=== PATIENT | male | born 1935 | race Caucasian/White ===

== ENCOUNTER → 2017-03-27 | Outpatient (REF) | payer MEDICARE ==
[~2017-03-27] MED LIST: ALLO100T PO; AMLO25TA PO; AMLO5TAB2 PO; ASPI81TA85 PO; D 101TAB PO; FISH100049 PO; HYDR12.55 PO; LEVO100T5 PO; LIPI20TA PO; METF-414 PO; METF-699 PO; METF10004 PO; METF500T13 PO; OLME40TA PO; VITA-176 PO
[2017-03-27 18:50] LABS: BASO # 0.1 K/mm3 (0.0-0.2); BASO % 1.1 % (0.0-1.0); EOS # 0.1 K/mm3 (0.0-0.50); EOS % 1.3 % (0.0-3.0); LARGE UNSTAINED CELL # 0.2 K/mm3 (0.0-0.4); LYMPH # 0.8 K/mm3 (1.5-4.5); LYMPH % 15.4 % (24.0-44.0); MEAN CORPUSCULAR HEMOGLOBIN 32.7 pg (27.0-33.0); MEAN CORPUSCULAR HGB CONC 34.3 g/dl (32.0-36.5); MEAN CORPUSCULAR VOLUME 95.4 fl (80.0-96.0); MONO # 0.3 K/mm3 (0.0-0.8); MONO % 6.6 % (0.0-5.0); NEUTROPHILS # 3.6 K/mm3 (1.8-7.7); NEUTROPHILS % 72.5 % (36.0-66.0); PLATELET COUNT, AUTOMATED 157 k/mm3 (150-450); RED CELL DISTRIBUTION WIDTH 12.6 % (11.5-14.5)
[2017-03-30 10:13] LABS: CONTROL LINE MONO INT CTR LINE PRESENT
[2017-03-31 00:11] LABS: Lyme Disease IgG/IgM Antibodie <0.91 ISR (0.00-0.90); Lyme Disease IgM Ab Quantitati <0.80 index (0.00-0.79)
== END ==
LOC: M LABDRAW1 17:08
PROVIDERS: ATTEND Physician Assistant
DX: R53.83 Other fatigue (principal)

== ENCOUNTER 2017-04-02 16:12 | Inpatient (IN) | payer MEDICARE ==
[~2017-04-02] VITALS: Ht 180.3 cm; Wt 95.1 kg
[2017-04-02] MEDS ORDERED: METF10004 PO (16:50)
[2017-04-02] MEDS ORDERED: ALLO100T PO (16:50)
[2017-04-02] MEDS ORDERED: AMLO25TA PO (16:50)
[2017-04-02] MEDS ORDERED: LIPI20TA PO (16:50)
[2017-04-02] MEDS ORDERED: ASPI81TA85 PO (16:50)
[2017-04-02] MEDS ORDERED: HYDR12.55 PO (16:50)
[2017-04-02] MEDS ORDERED: VITA-176 PO (16:50)
[2017-04-02] MEDS ORDERED: OLME40TA PO (16:50)
[2017-04-02] MEDS ORDERED: METF500T13 PO (16:50)
[2017-04-02] MEDS ORDERED: LEVO100T5 PO (16:50)
[2017-04-02] MEDS ORDERED: FISH100049 PO (16:50)
[2017-04-02] MEDS ORDERED: NS 1,000 ML IV ONE (17:30)
[2017-04-02 17:38] LABS: BASO # 0.1 K/mm3 (0.0-0.2); BASO % 0.8 % (0.0-1.0); EOS # 0.1 K/mm3 (0.0-0.50); EOS % 0.7 % (0.0-3.0); LARGE UNSTAINED CELL # 0.2 K/mm3 (0.0-0.4); LARGE UNSTAINED CELL % 1.4 % (0.0-4.0); LYMPH % 8.6 % (24.0-44.0); MEAN CORPUSCULAR HEMOGLOBIN 32.4 pg (27.0-33.0); MEAN CORPUSCULAR HGB CONC 34.6 g/dl (32.0-36.5); MEAN CORPUSCULAR VOLUME 93.8 fl (80.0-96.0); MONO # 0.6 K/mm3 (0.0-0.8); MONO % 5.5 % (0.0-5.0); NEUTROPHILS # 9.7 K/mm3 (1.8-7.7); NEUTROPHILS % 83.1 % (36.0-66.0); PLATELET COUNT, AUTOMATED 263 k/mm3 (150-450); RED CELL DISTRIBUTION WIDTH 12.2 % (11.5-14.5); WHITE BLOOD COUNT 11.7 K/mm3 (4.0-10.0)
--- NOTE | 2017-04-02 17:50 | REP ---
Chest two views HISTORY: Cough Comparison: 03/27/2017 Linear density is present in the left lower lobe consistent with atelectasis or infiltrate. The right lung is clear. The heart is normal in size. The pulmonary vasculature is normal in appearance. The bony structure is intact. IMPRESSION: Left lower lobe atelectasis or infiltrate. Signed by Mathew Muniz MD 04/02/2017 05:41 P
[2017-04-02] MEDS ORDERED: cefTRIAXone SOD 2 GM in D5W MINI-BAG PLUS 50 ML IV ONE (18:00)
[2017-04-02] MEDS ORDERED: AZITHROMYCIN 250 MG TAB PO ONE (18:00)
[2017-04-02 18:25] LABS: ALBUMIN/GLOBULIN RATIO 0.81 (1.00-1.93); BILIRUBIN,DIRECT 0.3 MG/DL (0.0-0.2); BILIRUBIN,TOTAL 0.8 MG/DL (0.2-1.0); CALCIUM LEVEL 8.6 MG/DL (8.8-10.2); CREATININE FOR GFR 1.98 MG/DL (0.70-1.30); GLOMERULAR FILTRATION RATE 34.6 (>35); POTASSIUM SERUM 4.4 MEQ/L (3.5-5.1); TOTAL PROTEIN 6.7 GM/DL (6.4-8.2)
[2017-04-02] MEDS ORDERED: METF-699 PO (19:59)
[2017-04-02] MEDS ORDERED: METF-414 PO (19:59)
[2017-04-02] MEDS ORDERED: D 101TAB PO (19:59)
[2017-04-02] MEDS ORDERED: ACETAMINOPHEN TAB 650MG DOSE (2X325MG) PO PRN (21:30)
[2017-04-02] MEDS ORDERED: GLUCOSE 4 GM CHEW TABLET PO PRN (21:30)
[2017-04-02] MEDS ORDERED: GLUCAGON FOR INJ 1 MG VIAL (J1610) SC PRN (21:30)
[2017-04-02] MEDS ORDERED: ONDANSETRON 4MG/2ML VIAL (J2405) IV PRN (21:30)
[2017-04-02] MEDS ORDERED: NS 1,000 ML IV SCH (21:30)
[2017-04-02] MEDS ORDERED: DEXTROSE 50% 50 ML SYRINGE IV PRN (21:30)
[2017-04-02] MEDS: HumaLOG INSULIN (NovoLOG) PER UNIT SC SCH (23:26)
[2017-04-02] MEDS: guaiFENesin ER 600 MG TAB PO SCH (23:40)
[2017-04-02] MEDS: ATORVASTATIN 20 MG TAB PO SCH (23:40)
[2017-04-02] MEDS: ALLOPURINOL 100 MG TAB PO SCH (23:40)
[2017-04-02 23:42] VITALS: BP 120/68
[2017-04-03] VITALS (12 sets, daily range): BP systolic 121–138; BP diastolic 60–79; O2SAT 91–97
[2017-04-03] MEDS ORDERED: METAL LOCK LOOP XX ONE (05:07)
[2017-04-03] MEDS: LEVOTHYROXINE 100MCG TABLET (0.1MG) PO SCH (05:34)
--- NOTE | 2017-04-03 05:46 | HPE ---
DATE OF ADMISSION: 04/02/2017 PRIMARY CARE PROVIDER: Dr. Ralf Lewis, phone number [phone], [place]. CHIEF COMPLAINT: Diffuse myalgia, subjective chills, generalized weakness. HISTORY OF PRESENT ILLNESS: This is an 81-year-old male patient with underlying medical history of diabetes, hypertension, dyslipidemia, gout, hypothyroidism, was here in [place] in the summer for a visit , presented with 1 week of progressively worsening diffuse myalgia, generalized weakness, subjective fevers and fatigue. Initially reported some neck stiffness that later had resolved. Symptom has persisted for 9 days. Also with mild nonproductive cough, nasal congestion. With loose bowel movement. No camping or exposure to. Patient has not been camping or in the [place], but does report concerns of the deer population but did not notice any rash or lesions. Denies any sick contact. Baseline ambulating with a cane. History of sleep apnea. Uses continuous positive airway pressure (CPAP) at night. Patient denies any chest pain, pressure or discomfort. Denies history of coronary artery disease or cerebrovascular disease. Denies any headache, vision change, hearing change. Was tachycardia on admission to the emergency room. Also has history of chronic kidney disease (CKD). Baseline creatinine as per emergency room provider is around 1.3. ALLERGIES to XARELTO (liver failure). PAST MEDICAL HISTORY: 1. Diabetes, type 2, [id number]. 2. Hypertension. 3. Dyslipidemia. 4. Gout. 5. Hypothyroidism. PAST SURGICAL HISTORY: Bilateral knee surgery. SOCIAL HISTORY: Patient lives in [place], here in [place] for the summer. Denies smoking. Drinking two cocktails per night. No history of alcohol addiction or withdrawal. REVIEW OF SYSTEMS: Reported fatigue, arthralgia, myalgia, subjective chills, cough and nasal congestion and cough. All other review of systems are negative. HOME MEDICATION: - allopurinol 100 mg by mouth twice a day - Norvasc 2.5 mg by mouth nightly - aspirin 81 mg by mouth daily - Lipitor 40 mg by mouth nightly - vitamin D 1000 units by mouth twice a day - fish oil one capsule by mouth daily - hydrochlorothiazide 12.5 mg by mouth every 2 days - Synthroid 100 mcg by mouth daily - metformin 500 mg by every morning and 1000 mg by mouth every evening - olmesartan 40 mg by mouth every evening PHYSICAL EXAMINATION: Vital Signs: Temperature 97, pulse 109, respirations 18, blood pressure 103/55, pulse oximetry 97% on room air. General: Patient alert, oriented times three, in no acute distress. HEENT: Normocephalic, atraumatic. Pulmonary: Bilateral clear to auscultation. Diminished breath sounds left lower base. Cardiac: Regular rate and rhythm. No tachycardia. S1, S2. Abdomen: Soft. Nontender. Positive bowel sounds. Extremities: No edema bilateral lower extremities. Neurologic: No focal deficit. No nuchal rigidity. Chest x-ray shows left lower lobe infiltrate versus atelectasis. LABORATORY: WBC 11.7, hemoglobin and hematocrit 13.4/38.9, platelets 263. Chemistry: Sodium 135, potassium 4.4, chloride 104, bicarbonate 22, BUN 50, creatinine 1.98, C-reactive protein 13.5. ASSESSMENT AND PLAN: This is an 81-year-old male patient with underlying medical history of diabetes, hypertension, dyslipidemia, gout, hypothyroidism, obstructive sleep apnea, admitted for pneumonia. PROBLEMS: 1. Community-acquired bacterial pneumonia. Patient with myalgia, arthralgia and subjective fever. Followup Lyme screening. Rocephin and Zithromax for now. Intravenous (IV) fluids for hydration. Followup C-reactive protein, respiratory panel. Mucinex, Acapella. X-rays appreciated. 2. Arthralgia and myalgia. Continue antibiotics as mentioned above. Lyme screening. 3. Acute on chronic renal insufficiency. Urine studies ordered. Ultrasound kidney. IV fluids for hydration. Followup BUN and creatinine. Withholding hydrochlorothiazide and angiotensin receptor blockers (ARBs). 4. Diabetes. Withholding metformin given elevated creatinine and patient has been admitted. Insulin is per protocol. Followup fingersticks. 5. Hypertension. Withholding hydrochlorothiazide and ARBs given active infection. Continue Norvasc, increase as needed. Followup blood pressure. 6. Dyslipidemia. Continue statin. 7. Gout. Continue current medication. 8. Hypothyroidism. Followup thyroid function test. Continue Synthroid. 9. Obstructive sleep apnea. Obstructive sleep apnea (LANG) protocol. CPAP as ordered. 10. Deep venous thrombosis (DVT) prophylaxis. Heparin subcu. DISPOSITION PLANNING: Pending clinical improvement, further workup. [facility]
[2017-04-03 06:52] LABS: MEAN CORPUSCULAR HEMOGLOBIN 32.8 pg (27.0-33.0); MEAN CORPUSCULAR HGB CONC 35.1 g/dl (32.0-36.5); MEAN CORPUSCULAR VOLUME 93.5 fl (80.0-96.0); RED CELL DISTRIBUTION WIDTH 12.5 % (11.5-14.5); WHITE BLOOD COUNT 8.6 K/mm3 (4.0-10.0)
[2017-04-03 07:17] LABS: ALBUMIN 2.3 GM/DL (3.2-5.2); ALBUMIN/GLOBULIN RATIO 0.55 (1.00-1.93); BILIRUBIN,TOTAL 0.8 MG/DL (0.2-1.0); CALCIUM LEVEL 8.2 MG/DL (8.8-10.2); CREATININE FOR GFR 1.49 MG/DL (0.70-1.30); GLOMERULAR FILTRATION RATE 48.1 (>35); THYROXINE (T4) 10.3 UG/DL (4.5-12.0); TOTAL PROTEIN 6.5 GM/DL (6.4-8.2)
--- NOTE | 2017-04-03 07:38 | ECGEPIP ---
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
[2017-04-03] MEDS: HEPARIN SOD (PORCINE) 5000 UNITS/ML VIAL SC SCH ×2 (08:28→20:27)
[2017-04-03] MEDS: OMEGA-3 1050MG CAPSULE PO SCH (08:28)
[2017-04-03] MEDS: VITAMIN D 1,000 INTERNATIONAL UNITS TABLET PO SCH ×2 (08:28→20:28)
[2017-04-03] MEDS: ALLOPURINOL 100 MG TAB PO SCH ×2 (08:28→20:28)
[2017-04-03] MEDS: SENOKOT S TAB PO SCH ×2 (08:28→20:28)
[2017-04-03] MEDS: ASPIRIN 81 MG ENTERIC TAB PO SCH (08:28)
[2017-04-03] MEDS: HumaLOG INSULIN (NovoLOG) PER UNIT SC SCH ×4 (08:28→20:18)
[2017-04-03] MEDS: guaiFENesin ER 600 MG TAB PO SCH ×2 (08:28→20:28)
--- NOTE | 2017-04-03 11:11 | REP ---
RENAL AND BLADDER ULTRASOUND: Real-time sonographic evaluation of the kidneys performed. Kidneys are normal in size, right kidney measuring 11.0 x 5.2 x 5.8 cm and left kidney 10.7 x 5.5 x 5.5 cm. Echotexture is slightly increased. There is no hydronephrosis. A cyst or focal caliectasis is seen in the lower pole of the left kidney 1.3 x 1.2 x 0.9 cm. No definite renal stones are seen. Urinary bladder demonstrates no mass or calculus measuring 12.4 x 9.5 x 6.3 cm. IMPRESSION: No hydronephrosis. Small left renal cyst. Signed by Fadi Quiles MD 04/03/2017 12:21 P
[2017-04-03] MEDS: AZITHROMYCIN INJ 500 MG, VIAL MATE ADAPTER 1 EACH in D5W 250 ML IV SCH (17:38)
[2017-04-03] MEDS: cefTRIAXone SOD 1 GM in D5W MINI-BAG PLUS 50 ML IV SCH (17:38)
--- NOTE | 2017-04-03 18:38 | IPN ---
DATE: 04/03/2017 SUBJECTIVE: Patient seen and examined in the room today. Patient stated he is taking vacation in [place]. His primary residence is in [place]. He has been in the [facility] for the past almost one month. He cannot recall any type of sick contact. Patient has been experiencing generalized arthralgia with fatigue. Before coming to the hospital, patient stated he has been sleeping more than 12 hours a day, which is not usual for him. However, he does feel his symptoms were improving the last week, but he cannot perform daily activity functions as he desired. That is why he came to [facility] to seek further assistance and treatments. Patient cannot recollect whether he has been having any type of insect bite. Denies any traumas. OBJECTIVE: VITAL SIGNS: Temperature 99.6, pulse 88, respirations 20, blood pressure 123/63, pulse oximetry 94% on room air. GENERAL: Fatigue. No signs of acute distress. Alert and oriented times three. HEENT: Normocephalic, atraumatic. Extraocular motor grossly intact. CARDIOVASCULAR: Positive S2, S2. Regular rate. LUNGS: Clear to auscultation bilaterally. Diminished breath sounds. ABDOMEN: Soft, nontender, nondistended. Bowel sounds present. EXTREMITIES: No edema. No cyanosis. LABORATORY DATA: WBC 8.6, hemoglobin 11.1, hematocrit 31.6, platelet count 245. Sodium 141, potassium 4, chloride 110, carbon dioxide 24, BUN 39, creatinine 1.49, GFR 48.1, fasting glucose 157, A1c 6.4, calcium 8.2, magnesium 2. Total bilirubin 0.8, AST 61, ALT 67 alkaline phosphatase 104, C-reactive protein 13.1, total protein 6.5. Thyroid stimulating hormone (TSH) 1.16, T4 level 10.3. ASSESSMENT AND PLAN: 1. Acute kidney injury. Patient currently experiencing generalized symptoms of subjective fevers, fatigue, generalized myalgias and arthralgias. Patient has decreased oral intake causing acute kidney injury. At the time of admission, the patient had a creatinine of 1.98. The patient has been receiving fluid resuscitation. Currently, creatinine has improved to 1.49. Continue current management. 2. Community-acquired pneumonia. Patient's imaging study cannot rule out pneumonia completely. Empirically, patient has been started on Rocephin and azithromycin. Will continue to follow the patient. 3. Generalized myalgias and arthralgias. Presented with a low-grade fever. Patient may be experiencing some viral infection recently. We will follow with disease screening. 4. Hypertension. Due to the acute kidney injury, patient's blood pressure medications are on hold. Even without his blood pressure medications, patient's blood pressure has been maintained in the satisfactory range. 5. Dyslipidemia. On Lipitor. 6. Gout. On allopurinol. 7. Non-insulin dependent diabetes. Patient is currently on sliding scale. 8. Obstructive sleep apnea (LANG). On LANG protocol. Patient may use his continuous positive airway pressure (C-PAP). 9. Deep venous thrombosis (DVT) prophylaxis. On heparin.
[2017-04-03] MEDS: ATORVASTATIN 20 MG TAB PO SCH (20:27)
[2017-04-04] VITALS (25 sets, daily range): BP systolic 122–155; BP diastolic 72–93; O2SAT 91–98
[2017-04-04] MEDS: LEVOTHYROXINE 100MCG TABLET (0.1MG) PO SCH (05:31)
[2017-04-04 06:37] LABS: MEAN CORPUSCULAR HEMOGLOBIN 31.8 pg (27.0-33.0); MEAN CORPUSCULAR HGB CONC 33.5 g/dl (32.0-36.5); MEAN CORPUSCULAR VOLUME 95.1 fl (80.0-96.0); RED CELL DISTRIBUTION WIDTH 12.1 % (11.5-14.5); WHITE BLOOD COUNT 11.2 K/mm3 (4.0-10.0)
[2017-04-04 06:50] LABS: ALBUMIN 2.5 GM/DL (3.2-5.2); ALBUMIN/GLOBULIN RATIO 0.56 (1.00-1.93); ALKALINE PHOSPHATASE 136 U/L (45-117); ALT/SGPT 134 U/L (12-78); ANION GAP 7 MEQ/L (8-16); AST/SGOT 127 U/L (15-37); BILIRUBIN,TOTAL 0.8 MG/DL (0.2-1.0); BLOOD UREA NITROGEN 23 MG/DL (7-18); CALCIUM LEVEL 9.1 MG/DL (8.8-10.2); CARBON DIOXIDE LEVEL 25 MEQ/L (21-32); CHLORIDE LEVEL 103 MEQ/L (98-107); CREATININE FOR GFR 1.16 MG/DL (0.70-1.30); GLOMERULAR FILTRATION RATE > 60.0 (>35); GLUCOSE, FASTING 144 MG/DL (83-110); MAGNESIUM LEVEL 1.8 MG/DL (1.8-2.4); POTASSIUM SERUM 4.2 MEQ/L (3.5-5.1); SODIUM LEVEL 135 MEQ/L (136-145)
[2017-04-04] MEDS: HumaLOG INSULIN (NovoLOG) PER UNIT SC SCH ×4 (08:24→21:00)
[2017-04-04] MEDS: ALLOPURINOL 100 MG TAB PO SCH ×2 (11:56→20:41)
[2017-04-04] MEDS: HEPARIN SOD (PORCINE) 5000 UNITS/ML VIAL SC SCH ×2 (11:56→20:42)
[2017-04-04] MEDS: ASPIRIN 81 MG ENTERIC TAB PO SCH (11:56)
[2017-04-04] MEDS: SENOKOT S TAB PO SCH ×2 (11:57→20:42)
[2017-04-04] MEDS: OMEGA-3 1050MG CAPSULE PO SCH (11:57)
[2017-04-04] MEDS: guaiFENesin ER 600 MG TAB PO SCH ×2 (11:57→20:42)
[2017-04-04] MEDS: VITAMIN D 1,000 INTERNATIONAL UNITS TABLET PO SCH ×2 (11:57→20:41)
--- NOTE | 2017-04-04 14:04 | REP ---
RIGHT UPPER QUADRANT ULTRASOUND: Real-time sonographic evaluation of the right upper quadrant performed. There are small gallstones in the gallbladder. There is no gallbladder wall thickening or pericholecystic fluid. There is no intrahepatic biliary dilatation. The common bile duct is not dilated measuring 6 mm in diameter. The liver demonstrates diffuse heterogeneous increased echotexture suggesting diffuse fibrofatty infiltration. A cyst is seen in the liver inferiorly 1.1 x 1.0 x 1.3 cm. The pancreas is grossly unremarkable but not well seen due to overlying bowel gas. Right kidney demonstrates no hydronephrosis with normal size at 12.2 cm in length. A cyst in the mid right kidney measures 1.5 x 1.1 x 1.3 cm. Another cyst in the upper pole measures 1.6 x 1.0 x 1.5 cm. IMPRESSION: Small gallstones in the gallbladder. No free fluid. No biliary dilatation. Diffuse fibrofatty infiltration of the liver. Small cyst inferiorly in the liver. Two right renal cysts. Signed by Fadi Quiles MD 04/04/2017 03:21 P
[2017-04-04 15:12] LABS: Lyme Disease IgG/IgM Antibodie <0.91 ISR (0.00-0.90); Lyme Disease IgM Ab Quantitati <0.80 index (0.00-0.79)
[2017-04-04] MEDS: cefTRIAXone SOD 1 GM in D5W MINI-BAG PLUS 50 ML IV SCH (17:15)
[2017-04-04] MEDS: AZITHROMYCIN INJ 500 MG, VIAL MATE ADAPTER 1 EACH in D5W 250 ML IV SCH (17:15)
--- NOTE | 2017-04-04 20:09 | IPN ---
DATE: 04/04/2017 SUBJECTIVE: The patient is seen and examined in the room today. The patient stated he does not have any fever or chill. His generalized discomfort has been improving. His joint pain and muscle pain are also improving. The patient tolerated good oral intake. His fatigue is also improving. OBJECTIVE: VITAL SIGNS: Temperature is 98.5, pulse 86, respiratory rate 20, blood pressure 155/93, pulse oximetry 94% on room air. GENERAL: No sign of acute distress. Alert and oriented times three. HEENT: Normocephalic, atraumatic. Extraocular motor grossly intact. CARDIOVASCULAR: Positive S1, S2. Regular rate. LUNGS: Clear to auscultation bilaterally. Diminished breath sounds. ABDOMEN: Soft, nontender, nondistended. EXTREMITIES: No edema, no sign of cyanosis. LABORATORY DATA: WBC 11.2, hematocrit 11.5, hematocrit 34.4, platelet count 312. Sodium 135, potassium 4.2, chloride 103, carbon dioxide 25, BUN 23, creatinine 1.16, GFR greater than 60, fasting glucose is 144, calcium 9.1, magnesium 1.8. Total bilirubin 0.8, AST 127, ALT 134, alkaline phosphatase 136. C-reactive protein 13.5. Total protein 7, albumin 2.5. ASSESSMENT AND PLAN: 1. Acute kidney injury most likely secondary to previous generalized weakness and discomfort. The patient was dehydrated. Since admission, the patient is being supplemented with intravenous (IV) fluid. Today, the patient's renal function returned to normal range. The patient has very good oral intake at this moment. I will continue to follow with the renal function tomorrow. 2. Hypothyroidism. On Synthroid. 3. Arthralgia with myalgia. The patient did present with a very low-grade temperature in the past. No significant white count is noted. The patient may have experienced some viral infection. Clinically the patient is improving. 4. Transaminitis. There is acute increase of transaminitis in the last 24-48 hours. Follow with liver ultrasound. Follow with hepatitis panel. Other possibility is that the transaminitis is due to the new medication usage. 5. Gout. On allopurinol. 6. [id number]-ssgcgiymw diabetes. The patient is currently on sliding scale. 7. Obstructive sleep apnea (LANG) on continuous positive airway pressure (CPAP). 8. Hypertension due to acute kidney injury (CIARAN). The patient's blood pressure was adjusted. Hydrochlorothiazide was on hold. The patient is getting Norvasc at 2.5 mg by mouth at bedtime. 9. Deep venous thrombosis (DVT) prophylaxis. On heparin.
[2017-04-04] MEDS: ATORVASTATIN 20 MG TAB PO SCH (20:41)
[2017-04-04] MEDS: amLODIPine 5 MG TAB PO SCH (20:42)
[2017-04-05] VITALS (13 sets, daily range): BP systolic 102–134; BP diastolic 53–81; O2SAT 91–97
[2017-04-05] MEDS ORDERED: METOCLOPRAMIDE INJ 10MG/2ML VIAL (J2765) IV ONE (04:45)
[2017-04-05] MEDS ORDERED: MOM 30ML SUSPENSION UDC PO ONE (04:45)
[2017-04-05 06:08] LABS: MEAN CORPUSCULAR HEMOGLOBIN 32.3 pg (27.0-33.0); MEAN CORPUSCULAR HGB CONC 34.7 g/dl (32.0-36.5); MEAN CORPUSCULAR VOLUME 93.2 fl (80.0-96.0); RED CELL DISTRIBUTION WIDTH 12.4 % (11.5-14.5); WHITE BLOOD COUNT 11.7 K/mm3 (4.0-10.0)
[2017-04-05 06:32] LABS: ALBUMIN 2.4 GM/DL (3.2-5.2); ALBUMIN/GLOBULIN RATIO 0.49 (1.00-1.93); ALKALINE PHOSPHATASE 170 U/L (45-117); ALT/SGPT 173 U/L (12-78); ANION GAP 11 MEQ/L (8-16); AST/SGOT 163 U/L (15-37); BILIRUBIN,TOTAL 0.9 MG/DL (0.2-1.0); BLOOD UREA NITROGEN 24 MG/DL (7-18); CARBON DIOXIDE LEVEL 26 MEQ/L (21-32); CHLORIDE LEVEL 99 MEQ/L (98-107); CREATININE FOR GFR 1.21 MG/DL (0.70-1.30); GLOMERULAR FILTRATION RATE > 60.0 (>35); GLUCOSE, FASTING 157 MG/DL (83-110); POTASSIUM SERUM 3.9 MEQ/L (3.5-5.1); SODIUM LEVEL 136 MEQ/L (136-145); TOTAL PROTEIN 7.3 GM/DL (6.4-8.2)
[2017-04-05] MEDS: LEVOTHYROXINE 100MCG TABLET (0.1MG) PO SCH (07:58)
[2017-04-05] MEDS: SENOKOT S TAB PO SCH ×2 (07:58→21:39)
[2017-04-05] MEDS: HumaLOG INSULIN (NovoLOG) PER UNIT SC SCH ×4 (09:00→21:41)
[2017-04-05] MEDS: HEPARIN SOD (PORCINE) 5000 UNITS/ML VIAL SC SCH ×2 (10:00→21:39)
[2017-04-05] MEDS: ALLOPURINOL 100 MG TAB PO SCH ×2 (10:01→21:39)
[2017-04-05] MEDS: ASPIRIN 81 MG ENTERIC TAB PO SCH (10:01)
[2017-04-05] MEDS: OMEGA-3 1050MG CAPSULE PO SCH (10:01)
[2017-04-05] MEDS: VITAMIN D 1,000 INTERNATIONAL UNITS TABLET PO SCH ×2 (10:01→21:40)
[2017-04-05] MEDS: guaiFENesin ER 600 MG TAB PO SCH ×2 (10:01→21:40)
--- NOTE | 2017-04-05 12:15 | REP ---
CT CHEST WITHOUT IV CONTRAST: CT chest is performed without IV contrast. Scattered linear fibroatelectatic changes are seen in the lower lobes bilaterally. No consolidating infiltrate is seen. The heart does not appear to be significantly enlarged. There is no pleural or pericardial effusion. No significant adenopathy is seen in the mediastinal or hilar regions. There are mild scattered atherosclerotic calcifications of the thoracic aorta without evidence of aneurysm. There are degenerative changes of the spine. Visualized upper abdominal structures appear grossly unremarkable. IMPRESSION: Scattered fibroatelectatic changes in the lower lobes. No consolidating infiltrate. Signed by Fadi Quiles MD 04/05/2017 07:28 P
[2017-04-05] MEDS: NS 1,000 ML IV SCH (18:23)
--- NOTE | 2017-04-05 20:39 | IPN ---
DATE OF SERVICE: 04/05/2017 SUBJECTIVE: Patient is seen and examined in the room today. Yesterday near midnight, patient started having acute nausea, vomiting and he had vomited three times since. Due to frequent nausea, vomiting, he is not able to tolerate his noninvasive positive pressure ventilation (NIPPV) and he has been placed on the nasal cannula. This morning during encounter, patient stated he does feel extremely tired due to the persistent nausea and vomiting overnight. His joint pain and muscle pain has improved. OBJECTIVE: VITAL SIGNS: Temperature 97.1, pulse 83, respiratory rate 20, blood pressure 134/81, pulse oximetry 95% in room air. GENERAL: Fatigued, no sign of acute distress. Alert and oriented times three. HEENT: Normocephalic, atraumatic. Extraocular motor grossly intact. CARDIOVASCULAR: Positive S1, S2. Regular rate. LUNGS: Clear to auscultation bilaterally. Decreased breath sounds. ABDOMEN: Soft, nontender, nondistended. EXTREMITIES: No edema, no sign of cyanosis. LABORATORY DATA: WBC 11.7, hemoglobin 11.3, hematocrit 32.4, platelet count 338. Sodium 136, potassium 3.9, chloride 99, carbon dioxide 26, BUN 24, creatinine 1.21, GFR greater than 60, fasting glucose is 157, calcium 9, magnesium 2. Total bilirubin 0.9, AST 163, ALT 173, alkaline phosphatase 170. C-reactive protein is 16.9. Total protein 7.3, albumin 2.4. ASSESSMENT AND PLAN: 1. Adenovirus. It is approximately 1-1/2 to 2 weeks since the beginning of the patient's disease process. Patient is still having intermittent gastrointestinal (GI) symptoms. Will continue with supportive care. In the last 24 hours, patient still has nausea, vomiting causing poor oral intake. Patient is started on intravenous (IV) support. I also had a chance to talk to patient's and patient's son. All their questions are answered. 2. Gout. On allopurinol. 3. Acute kidney injury secondary to dehydration from poor oral intake. Patient with IV fluid, acute kidney injury resolved. 4. Arthralgia and myalgia. Most likely secondary to enterovirus. Lyme disease negative. 5. Transaminitis. Possibly due to the GI involvement from current enterovirus infection. The patient has a negative liver ultrasound. Will follow with a hepatitis panel. 6. Sip-xebjpto-dmxmnibko diabetes. Patient will be on sliding scale. 7. Obstructive sleep apnea (LANG). On continuous positive airway pressure (CPAP). 8. Hypertension. Patient is on Norvasc. Due to acute kidney injury (CIARAN), hydrochlorothiazide has been on hold. Lisinopril was on hold due to CIARAN. It seems the patient can achieve better blood pressure control at home. The patient may not need lisinopril any more. 9. Hypothyroidism. On Synthroid. 10. Deep venous thrombosis (DVT) prophylaxis. Patient on heparin. MTDD
[2017-04-05] MEDS: amLODIPine 5 MG TAB PO SCH (21:39)
[2017-04-06] MEDS: NS 1,000 ML IV SCH (05:15)
[2017-04-06 06:00] VITALS: BP 127/67
[2017-04-06] MEDS: LEVOTHYROXINE 100MCG TABLET (0.1MG) PO SCH (06:23)
[2017-04-06 06:44] LABS: MEAN CORPUSCULAR HEMOGLOBIN 32.2 pg (27.0-33.0); MEAN CORPUSCULAR VOLUME 94.6 fl (80.0-96.0); RED CELL DISTRIBUTION WIDTH 12.4 % (11.5-14.5); WHITE BLOOD COUNT 10.4 K/mm3 (4.0-10.0)
[2017-04-06 07:02] LABS: ALBUMIN/GLOBULIN RATIO 0.43 (1.00-1.93); BILIRUBIN,TOTAL 0.5 MG/DL (0.2-1.0); CALCIUM LEVEL 8.6 MG/DL (8.8-10.2); CREATININE FOR GFR 1.24 MG/DL (0.70-1.30); GLOMERULAR FILTRATION RATE 59.4 (>35); POTASSIUM SERUM 4.4 MEQ/L (3.5-5.1); TOTAL PROTEIN 6.6 GM/DL (6.4-8.2)
[2017-04-06] MEDS: guaiFENesin ER 600 MG TAB PO SCH (09:34)
[2017-04-06] MEDS: HEPARIN SOD (PORCINE) 5000 UNITS/ML VIAL SC SCH (09:34)
[2017-04-06] MEDS: OMEGA-3 1050MG CAPSULE PO SCH (09:34)
[2017-04-06] MEDS: HumaLOG INSULIN (NovoLOG) PER UNIT SC SCH ×2 (09:34→12:00)
[2017-04-06] MEDS: SENOKOT S TAB PO SCH (09:35)
[2017-04-06] MEDS: VITAMIN D 1,000 INTERNATIONAL UNITS TABLET PO SCH (09:35)
[2017-04-06] MEDS: ALLOPURINOL 100 MG TAB PO SCH (09:35)
[2017-04-06] MEDS: ASPIRIN 81 MG ENTERIC TAB PO SCH (09:35)
[2017-04-06] MEDS ORDERED: AMLO5TAB2 PO (10:42)
[2017-04-06 14:00] VITALS: BP 114/59
--- NOTE | 2017-04-09 18:36 | DSES ---
DATE OF ADMISSION: 04/02/2017 DATE OF DISCHARGE: 04/06/2017 PRIMARY CARE PROVIDER: Dr. Ralf Lewis in [place] and Debbi Donahue MD in [place], [place] CONSULTANTS: None. COMPLICATIONS: None. ADMISSION/DISCHARGE DIAGNOSES: 1. Enterovirus infection. 2. Gout. 3. Acute kidney injury secondary to dehydration. 4. Arthritis and myalgia. 5. Transaminitis from acute viral infection. 6. Non-insulin dependent diabetes. 7. Obstructive sleep apnea (LANG) on continuous positive airway pressure (CPAP). 8. Hypertension. 9. Hypothyroidism. HOSPITALIZATION COURSE: Patient is an 81-year-old male who presented to [facility] on 04/02/2017, with generalized weakness and diffuse myalgia/arthralgia. Patient is admitted to progressive care unit (PCU) for telemetry and diagnostic tests were ordered to establish a diagnosis. Initially, due to concern for community-acquired pneumonia, patient is started on empiric antibiotics. With medical management, patient showed subjective improvement initially. However, on 04/04/2017, patient started to have recurrent severe vomiting. Symptoms resolved with medical management. Later, the diagnostic studies came back positive for Enterovirus. With medical management, patient showed continued improvement and on 04/06/2017, patient was evaluated by physical therapy and determined to be stable for discharge. OBJECTIVE: VITAL SIGNS: Temperature is 97.5, pulse is 82, respirations 20, blood pressure is 114/59, pulse oximetry is 94% in room air. LABORATORY DATA: WBC 10.4, hemoglobin 10.7, hematocrit 31.5, platelet count is 338. Sodium 142, potassium 4.4, chloride 105, carbon dioxide 30, BUN 26, creatinine is 1.24, GFR is 59.4, fasting glucose is 128, calcium 8.6, magnesium 2, total bilirubin 0.5, AST 100, ALT 136, alkaline phosphatase is 149, C-reactive protein 13, total protein 6.6, albumin 2. IMAGING STUDIES: Chest x-ray on 04/02/2017, showed left lower lobe atelectasis or infiltrate. Renal ultrasound on 04/03/2017, showed hydronephrosis. Liver ultrasound on 04/04/2017, showed small gallstone in the gallbladder. No free fluid. No biliary dilatation. Diffuse fibrofatty infiltrate of the liver. Small cyst inferiorly the liver. Two right renal cysts. CT of the chest without contrast on 04/05/2017, showed scattered fibroatelectatic changes in the lower lobe. No consolidating infiltrates. Microbiology: Blood cultures negative after 5 days times two sets, sample collected on 04/02/2017. Respiratory panel is negative. Gastrointestinal (GI) panel shows positive for Enterovirus. DISCHARGE MEDICATIONS: - amlodipine 5 mg by mouth nightly - allopurinol 100 mg by mouth twice a day - aspirin 81 mg by mouth daily - atorvastatin 40 mg by mouth nightly - vitamin D 1000 units by mouth twice a day - Synthroid 100 mcg by mouth daily - metformin 500 mg by mouth every morning and metformin 1000 mg by mouth every evening - olmesartan 40 mg by mouth every evening DISCHARGE INSTRUCTIONS: Discontinue lines. Discharge home. Activity as tolerated. Patient should ambulate with a walker which was provided to the patient before patient fully regains his strength. Patient should followup with primary care provider in 1-2 weeks. DISCHARGE CONDITION: Stable. DISCHARGE TIME: Greater than 30 minutes.
== END 2017-04-06 16:40 | disposition home or self-care (01) | DRG 392 ==
LOC: M ED 16:12 → M ED INP 21:23 → M PCU 04-03 15:34 → M MS5PR 04-05 12:10
PROVIDERS: ADMIT Hospitalist; ATTEND Internal Medicine
DX: A08.2 Adenoviral enteritis (principal); N17.9 Acute kidney failure, unspecified; E11.9 Type 2 diabetes mellitus without complications; I12.9 Hypertensive chronic kidney disease with stage 1 through stage 4 chronic kidney disease, or unspecified chronic kidney disease; E78.5 Hyperlipidemia, unspecified; M10.9 Gout, unspecified; R74.0 Nonspecific elevation of levels of transaminase and lactic acid dehydrogenase [LDH]; E86.0 Dehydration; G47.33 Obstructive sleep apnea (adult) (pediatric); E03.9 Hypothyroidism, unspecified; N18.9 Chronic kidney disease, unspecified; Z79.84 Long term (current) use of oral hypoglycemic drugs; Z79.82 Long term (current) use of aspirin; Z79.899 Other long term (current) drug therapy